=== PATIENT | male | born 1950 | race Caucasian/White ===

== ENCOUNTER 2019-02-09 09:32 | Outpatient (CLI) | payer BC, MEDICARE ==
--- NOTE | 2019-02-09 13:50 | NM ---
Exam: Total body bone scan: HISTORY: Malignant neoplasm of prostate, newly diagnosed Patient was injected with 32.5 mCi technetium 99m MDP intravenously. There are some small scattered a reas of focal increased activity involving both shoulders, lower lumbar spine, both knees, feet and ankle regions evidence for degenerative and osteoarthrosis changes. Small focus of increased activity at the anterior costochondral junction region of the left third rib. Bilateral renal and bladder activity. IMPRESSION: No evidence for overt bone metastasis. Scattered areas of minimal increased activity having more the appearance of degenerative-arthrosis changes. Bilateral renal and bladder activity.
== END 2019-02-09 09:33 | disposition home or self-care (01) ==
LOC: NM 09:32
PROVIDERS: ATTEND Urology
DX: C61 Malignant neoplasm of prostate (principal); R94.8 Abnormal results of function studies of other organs and systems
CPT/HCPCS: 78306; A9503

== ENCOUNTER 2021-09-05 07:56 | Outpatient (CLI) | payer MEDICARE, BC ==
[2021-09-05 08:25] LABS: Estimated GFR-MDRD - POC Greater than 90
[2021-09-05] MEDS ORDERED: Iopamidol 370 76% 100 ML VIAL ONE (09:08)
== END 2021-09-05 07:57 | disposition home or self-care (01) ==
LOC: CT 07:56
PROVIDERS: ATTEND Urology
DX: C61 Malignant neoplasm of prostate (principal)
CPT/HCPCS: 74177; 78306; 82565; A9503

== ENCOUNTER 2021-12-21 14:43 | Outpatient (CLI) | payer MEDICARE, BC | END 2021-12-21 14:44 | disposition home or self-care (01) | LOC: BICMAMMO 14:43 | PROVIDERS: ATTEND Internal Medicine Hematology & Oncology | DX: Z13.820 Encounter for screening for osteoporosis (principal); M81.0 Age-related osteoporosis without current pathological fracture; Z79.818 Long term (current) use of other agents affecting estrogen receptors and estrogen levels | CPT/HCPCS: 77080 ==

== ENCOUNTER 2023-02-25 15:46 | Outpatient (CLI) | payer MEDICARE, BC | END 2023-02-25 15:47 | disposition home or self-care (01) | LOC: ULT 15:46 | PROVIDERS: ATTEND Otolaryngology Otolaryngic Allergy | DX: E04.1 Nontoxic single thyroid nodule (principal) | CPT/HCPCS: 76536 ==

== ENCOUNTER 2023-04-25 08:53 | Outpatient (CLI) | payer MEDICARE, BC | END 2023-04-25 08:54 | disposition home or self-care (01) | LOC: NM 08:53 | PROVIDERS: ATTEND Internal Medicine Hematology & Oncology | DX: C61 Malignant neoplasm of prostate (principal); C79.51 Secondary malignant neoplasm of bone | CPT/HCPCS: 78306; A9503 ==

== ENCOUNTER 2024-01-06 15:10 | Outpatient (CLI) | payer MEDICARE | END 2024-01-06 15:11 | disposition home or self-care (01) | LOC: BICMAMMO 15:10 | PROVIDERS: ATTEND Internal Medicine Hematology & Oncology | DX: M81.8 Other osteoporosis without current pathological fracture (principal); C61 Malignant neoplasm of prostate; C79.51 Secondary malignant neoplasm of bone; M85.851 Other specified disorders of bone density and structure, right thigh | CPT/HCPCS: 77080 ==

== ENCOUNTER 2024-03-30 12:48 | Outpatient (CLI) | payer MEDICARE | END 2024-03-30 12:49 | disposition home or self-care (01) | LOC: SCSMRI 12:48 | PROVIDERS: ATTEND Radiology Radiation Oncology | DX: C61 Malignant neoplasm of prostate (principal); C79.51 Secondary malignant neoplasm of bone; M51.36 Other intervertebral disc degeneration, lumbar region; M48.061 Spinal stenosis, lumbar region without neurogenic claudication | CPT/HCPCS: 36415; 72158; 82565 ==

== ENCOUNTER 2024-06-25 12:30 | Outpatient (CLI) | payer MEDICARE | END 2024-06-25 12:31 | disposition home or self-care (01) | LOC: PET 12:30 | PROVIDERS: ATTEND Internal Medicine Hematology & Oncology | DX: C61 Malignant neoplasm of prostate (principal); C79.51 Secondary malignant neoplasm of bone; M81.8 Other osteoporosis without current pathological fracture | CPT/HCPCS: 78815; A9552; A9595 ==

== ENCOUNTER 2024-07-23 10:26 | Outpatient (CLI) | payer MEDICARE | END 2024-07-23 10:27 | disposition home or self-care (01) | LOC: MRI 10:26 | PROVIDERS: ATTEND Radiology Radiation Oncology | DX: C79.51 Secondary malignant neoplasm of bone (principal); M89.9 Disorder of bone, unspecified; C80.1 Malignant (primary) neoplasm, unspecified | CPT/HCPCS: 36415; 72157; 82565 ==